=== PATIENT | female | born 1990 | race Caucasian/White ===

== ENCOUNTER 2017-02-22 18:19 | Emergency (ER) | payer MEDICAID ==
[~2017-02-22] VITALS: Ht 162.6 cm; Wt 61.2 kg
[2017-02-22 18:38] VITALS: Ht 162.6 cm; Wt 61.2 kg
[2017-02-22 21:20] VITALS: BP 120/70
== END 2017-02-22 21:20 | disposition home or self-care (01) ==
LOC: ED 18:19
DX: S13.4XXA Sprain of ligaments of cervical spine, initial encounter (principal); M25.511 Pain in right shoulder; V89.2XXA Person injured in unspecified motor-vehicle accident, traffic, initial encounter; Y93.89 Activity, other specified; Y92.89 Other specified places as the place of occurrence of the external cause; Y99.8 Other external cause status
CPT/HCPCS: J1885; J2270